=== PATIENT | female | born 1950 | race Caucasian/White ===

== ENCOUNTER 2023-01-24 08:36 | Outpatient (CLI) | payer MEDICARE, BC ==
[2023-01-24 14:54] LABS: ALBUMIN 4.1 g/dL (3.2-5.5); ALBUMIN/GLOBULIN RATIO 1.5 (1.0-2.2); BILIRUBIN,TOTAL 0.6 mg/dL (0.2-1.0); CALCIUM 8.6 mg/dL (8.5-10.3); CREATININE 0.8 mg/dL (0.4-1.0); POTASSIUM 4.3 mmol/L (3.5-5.0); TOTAL PROTEIN 6.8 g/dL (6.7-8.2)
[2023-01-24 15:03] LABS: THYROID STIMULATING HORMONE 1.4 uIU/mL (0.34-5.60)
== END 2023-01-24 08:37 | disposition home or self-care (01) ==
LOC: LAB.S 08:36
PROVIDERS: ATTEND Internal Medicine
DX: G24.9 Dystonia, unspecified (principal); Z13.29 Encounter for screening for other suspected endocrine disorder
CPT/HCPCS: 36415; 80053; 82306; 83970; 84443

== ENCOUNTER 2024-04-23 07:45 | Outpatient (CLI) | payer MEDICARE, BC ==
[2024-04-23 08:03] LABS: EOSINOPHILS # (AUTO) 0.1 10^3/uL (0.0-0.7); EOSINOPHILS % (AUTO) 3.5 %; HCT - HEMATOCRIT 41.8 % (37.0-47.0); HGB - HEMOGLOBIN 13.4 g/dL (12.0-16.0); LYMPHOCYTES # (AUTO) 1.5 10^3/uL (1.5-3.5); LYMPHOCYTES % (AUTO) 37.8 %; MEAN CORPUSCULAR HEMOGLOBIN 27.1 pg (27.0-31.0); MEAN CORPUSCULAR HGB CONC 32.1 g/dL (32.0-36.0); MEAN CORPUSCULAR VOLUME 84.6 fL (81.0-99.0); MEAN PLATELET VOLUME 8.7 fL (7.9-10.8); MONOCYTES # (AUTO) 0.3 10^3/uL (0.0-1.0); NEUTROPHILS % (AUTO) 50.7 %; PLT - PLATELET COUNT 210 10^3/uL (130-450); RED BLOOD COUNT 4.94 10^6/uL (4.20-5.40); RED CELL DISTRIBUTION WIDTH 12.5 % (12.0-15.0)
[2024-04-23 08:20] LABS: CHOL/HDL RATIO 5.2 (<4.4); CHOLESTEROL 239 mg/dL; HDL CHOLESTEROL 46 mg/dL; LDL CHOLESTEROL,CALCULATED 170 mg/dL; LDL/HDL RATIO 3.7 (<4.4); TRIGLYCERIDES 117 mg/dL; VLDL CHOLESTEROL 23 mg/dL
[2024-04-23 08:41] LABS: FERRITIN 72.9 ng/mL (11.0-306.8)
== END 2024-04-23 07:46 | disposition home or self-care (01) ==
LOC: LAB 07:45
PROVIDERS: ATTEND Internal Medicine
DX: E78.5 Hyperlipidemia, unspecified (principal); Z79.899 Other long term (current) drug therapy
CPT/HCPCS: 36415; 80061; 82306; 82607; 82728; 83721; 85025